=== PATIENT | male | born 1970 | race Caucasian/White ===

== ENCOUNTER 2016-11-07 04:30 | Emergency (ER) | payer BC, OTHER ==
[2016-11-07] MEDS ORDERED: KETOROLAC 60 MG/2 ML VIAL IM STA (04:59)
[2016-11-07] MEDS ORDERED: ACETAMINOPHEN TAB 500 MG TAB PO STA (04:59)
--- NOTE | 2016-11-07 05:02 | ED ---
General Adult HPI - General Chief complaint: Fever Stated complaint: Fever Time Seen by Provider: 11/07/16 04:47 Source: patient, RN notes reviewed, old records reviewed Mode of arrival: ambulatory Limitations: no limitations - History of Present Illness Initial comments: This is a 46-year-old male here for evaluation of fever. Patient coming in for fever cough and congestion, cities episodic fever since Monday with no improvement, getting worse difficult to control despite Motrin and Tylenol. Patient states he is taking appropriate doses of both medications. Also complains of cough and coughing up phlegm. No nausea vomiting or diarrhea, patient does complain of body aches - Related Data Home Medications Medication Instructions Recorded Confirmed No Known Home Medications [No 11/07/16 11/07/16 Known Home Medications] Allergies Allergy/AdvReac Type Severity Reaction Status Date / Time No Known Allergies Allergy Verified 11/07/16 04:45 Review of Systems ROS Statement: Those systems with pertinent positive or pertinent negative responses have been documented in the HPI. ROS Other: All systems not noted in ROS Statement are negative. Past Medical History Past Medical History: Sleep Apnea/CPAP/BIPAP Additional Past Medical History / Comment(s): TORTICOLLIS , VARICOSE VEINS, CYST RIGHT FACE, decreased urine flow History of Any Multi-Drug Resistant Organisms: None Reported Additional Past Surgical History / Comment(s): COLONOSCOPY Past Anesthesia/Blood Transfusion Reactions: No Reported Reaction Past Psychological History: No Psychological Hx Reported Smoking Status: Former smoker Past Alcohol Use History: Occasional Past Drug Use History: None Reported General Exam Limitations: no limitations General appearance: alert, in no apparent distress Head exam: Present: atraumatic, normocephalic, normal inspection Eye exam: Present: normal appearance, PERRL, EOMI. Absent: scleral icterus, conjunctival injection, periorbital swelling ENT exam: Present: normal exam, mucous membranes moist Neck exam: Present: normal inspection. Absent: tenderness, meningismus, lymphadenopathy Respiratory exam: Present: normal lung sounds bilaterally. Absent: respiratory distress, wheezes, rales, rhonchi, stridor Cardiovascular Exam: Present: regular rate, normal rhythm, normal heart sounds. Absent: systolic murmur, diastolic murmur, rubs, gallop, clicks GI/Abdominal exam: Present: soft, normal bowel sounds. Absent: distended, tenderness, guarding, rebound, rigid Extremities exam: Present: normal inspection, full ROM, normal capillary refill. Absent: tenderness, pedal edema, joint swelling, calf tenderness Back exam: Present: normal inspection Neurological exam: Present: alert, oriented X3, CN II-XII intact Psychiatric exam: Present: normal affect, normal mood Skin exam: Present: warm, dry, intact, normal color. Absent: rash Course Vital Signs 11/07/16 04:40 Temperature 102.9 F H Pulse Rate 109 H Respiratory 18 Rate Blood Pressure 124/67 O2 Sat by Pulse 95 Oximetry - Reevaluation(s) Reevaluation #1: 11/07/16 05:01 Patient's fevers improved in the ER encouraged to increase liquids Medical Decision Making - Medical Decision Making Return to the ER for evaluation. Patient presents today for evaluation of cough and fever and body ache, patient with flulike symptoms, - Radiology Data Radiology results: report reviewed (Chest x-ray is negative for acute disease), image reviewed Disposition Clinical Impression: Influenza, Fever Disposition: HOME SELF-CARE Condition: Good Instructions: Fever in Adults (ED), Influenza (ED) Referrals: Delano Calixto DO [Primary Care Provider] - 1-2 days
--- NOTE | 2016-11-07 05:35 | XR ---
EXAM: XR Chest, 2 Views. CLINICAL HISTORY: Reason: Pain TECHNIQUE: Frontal and lateral views of the chest. COMPARISON: No relevant prior studies available. FINDINGS: Lungs: The lungs are mildly hypoinflated. No evidence of airspace consolidation. Pleural spaces: Unremarkable. No pneumothorax. Heart: Unremarkable. No cardiomegaly. Mediastinum: Unremarkable. Bones: Unremarkable. No acute fracture. IMPRESSION: No evidence of active cardiopulmonary abnormality.
[2016-11-07 06:11] VITALS: BP 132/74; PULSE 98; RESP 16; TEMP 100.8
== END 2016-11-07 06:10 | disposition home or self-care (01) ==
LOC: EC 04:30
DX: J11.1 Influenza due to unidentified influenza virus with other respiratory manifestations (principal); Z87.891 Personal history of nicotine dependence
CPT/HCPCS: 87502; 71020; 99284; 96372; J1885

== ENCOUNTER → 2021-04-09 | Outpatient (CLI) | payer BC ==
--- NOTE | 2021-04-10 09:04 | XR ---
Left shoulder HISTORY: Pain for 2 months 3 views of the left shoulder Some mild acromioclavicular joint arthropathy changes present. No fracture or dislocation. Bone home office claims examiner alization, joint spaces and alignment are maintained. Left lung apex as visualized is normal. IMPRESSION: Acromioclavicular joint arthropathy. Shoulder MRI may be of benefit.
== END | disposition home or self-care (01) ==
LOC: RADXRMAIN 17:40
PROVIDERS: ATTEND Family Medicine
DX: M19.012 Primary osteoarthritis, left shoulder (principal)

== ENCOUNTER → 2022-04-25 | Outpatient (CLI) | payer BC ==
--- NOTE | 2022-04-25 14:42 | US ---
EXAMINATION TYPE: US venous doppler duplex LE DATE OF EXAM: 04/25/2022 2:32 PM COMPARISON: NONE CLINICAL HISTORY: I83.893 VARICOSE VEINS OF BOTH EXTREMITIES. SIDE PERFORMED: Bilateral TECHNIQUE: The lower extremity deep venous system is examined utilizing real time linear array sonog jamal with graded compression, doppler sonography and color-flow sonography. VESSELS IMAGED: Common Femoral Vein Deep Femoral Vein Greater Saphenous Vein * Femoral Vein Popliteal Vein Small Saphenous Vein * Proximal Calf Veins (* superficial vessels) Grayscale, color doppler, spectral doppler imaging performed of the deep veins of the lower extremiti es. There is normal flow, compressibility, vascular waveforms. Right Leg: Negative for DVT Left Leg: Negative for DVT IMPRESSION: No deep venous thrombosis of either lower extremity.
== END | disposition home or self-care (01) ==
LOC: RADUSWWP 08:11
PROVIDERS: ATTEND Family Medicine
DX: I83.893 Varicose veins of bilateral lower extremities with other complications (principal)
CPT/HCPCS: 93970

== ENCOUNTER → 2024-04-02 | Outpatient (CLI) | payer BC ==
--- NOTE | 2024-04-30 11:04 | CA ---
Transthoracic Echo Report Name: Leroy Jimenez Age: 53 Gender: M : 1970 Exam Date: 04/02/2024 14:12 Exam Location: [facility] Ht (in): 72 Wt (lb): 255 Ordering Physician: Attending/Referring Phys: Vibratory Pile Driver Nakia Green RDCS Procedure CPT: Indications: Cardiac Hx: Technical Quality: Fair Contrast 1: Total Dose (mL): Contrast 2: Total Dose (mL): MEASUREMENTS (Male / Female) Normal Values 2D ECHO LV Diastolic Diameter PLAX 4.3 cm 4.2 - 5.9 / 3.9 - 5.3 cm LV Systolic Diameter PLAX 2.5 cm IVS Diastolic Thickness 1.1 cm 0.6 - 1.0 / 0.6 - 0.9 cm LVPW Diastolic Thickness 1.3 cm 0.6 - 1.0 / 0.6 - 0.9 cm LV Relative Wall Thickness 0.5 RV Internal Dim ED PLAX 4.5 cm LA Volume 57.6 cm??? 18 - 58 / 22 - 52 cm??? LA Volume Index 23.4 cm???/m??? 16 - 28 cm???/m??? M-MODE Aortic Root Diameter MM 3.5 cm LA Systolic Diameter MM 4.5 cm LA Ao Ratio MM 1.3 AV Cusp Separation MM 2.1 cm DOPPLER AV Peak Velocity 147.0 cm/s AV Peak Gradient 8.6 mmHg AV Mean Velocity 112.0 cm/s AV Mean Gradient 5.4 mmHg AV Velocity Time Integral 32.0 cm LVOT Peak Velocity 129.5 cm/s LVOT Peak Gradient 6.7 mmHg LVOT Velocity Time Integral 24.8 cm MV Area PHT 4.1 cm??? Mitral E Point Velocity 72.9 cm/s Mitral A Point Velocity 65.2 cm/s Mitral E to A Ratio 1.1 MV Deceleration Time 182.9 ms MV E' Velocity 12.6 cm/s Mitral E to MV E' Ratio 5.8 TR Peak Velocity 232.9 cm/s TR Peak Gradient 21.7 mmHg Right Ventricular Systolic Press 26.3 mmHg FINDINGS Left Ventricle Mildly increased left ventricular wall thickness. Left ventricular cavity size normal. Normal left ventricular systolic function with no obvious regional wall motion abnormalities. Left ventricular ejection fraction is estimated at 55-60 %. Normal left ventricular diastolic filling pattern. Right Ventricle Mild right ventricular dilatation. Right ventricular systolic pressure within normal limits. Right Atrium Normal right atrial size. Left Atrium Normal left atrial size. Mitral Valve Structurally normal mitral valve. No mitral stenosis, regurgitation or prolapse. Aortic Valve Trileaflet aortic valve. No aortic valve stenosis or regurgitation. Tricuspid Valve Structurally normal tricuspid valve. Mild tricuspid regurgitation. Pulmonic Valve Structurally normal pulmonic valve. No pulmonic regurgitation. Pericardium No pericardial effusion. Aorta Normal size aortic root and proximal ascending aorta. CONCLUSIONS 1. Normal left ventricular size and systolic function 2. Mild tricuspid regurgitation 3. Mildly dilated right ventricle Previewed by: Dr. eJff Ramos MD (Electronically Signed) Final Date: 03 April 2024 07:25
== END | disposition home or self-care (01) ==
LOC: RADECHMAIN 13:45
PROVIDERS: ATTEND Family Medicine
DX: R06.09 Other forms of dyspnea (principal); I51.7 Cardiomegaly
CPT/HCPCS: 93306

== ENCOUNTER → 2024-05-09 | Outpatient (CLI) | payer BC ==
--- NOTE | 2024-05-13 07:05 | US ---
EXAMINATION TYPE: US carotid duplex BILAT DATE OF EXAM: 05/09/2024 COMPARISON: NONE CLINICAL INDICATION: Male, 53 years old with history of I 10 Essential hypertension; HTN TECHNIQUE: Carotid duplex ultrasound examination. Indirect Doppler criteria was utilized. FINDINGS: EXAM MEASUREMENTS: RIGHT: Peak Systolic Velocity (PSV) cm/sec ----- Right CCA: 103.6 ----- Right ICA: 134.5 ----- Right ECA: 118.1 ICA/CCA ratio: 1.3 RIGHT: End Diastole cm/sec ----- Right CCA: 22.9 ----- Right ICA: 25.3 ----- Right ECA: 17.9 LEFT: Peak Systolic Velocity (PSV) cm/sec ----- Left CCA: 114.1 ----- Left ICA: 131.8 ----- Left ECA: 131.8 ICA/CCA ratio: 1.2 LEFT: End Diastole cm/sec ----- Left CCA: 29.4 ----- Left ICA: 23.4 ----- Left ECA: 17.9 VERTEBRALS (direction of flow): Right Vertebral: Antegrade Left Vertebral: Antegrade Rhythm: Normal PHYSICIAN RELATIONS SPECIALIST NOTES: Significant plaquing is not identified. However, the internal carotid artery veloc ities are elevated, correlate with patient's symptoms. If additional evaluation would be of benefit, consider CTA or MRA of the neck vessels. IMPRESSION: Moderate elevated velocities in bilateral internal carotid arteries suggesting 50-69% narrowing. Sign ificant plaquing however is not identified. Correlate with the clinical symptoms. Criteria for Assigning % of Stenosis / Diameter reduction (Estimation based on the indirect measurements of the internal carotid artery velocities (ICA PSV). 1. Normal (no stenosis)=ICA PSV < 125 cm/s: ratio < 2.0: ICA EDV<40 cm/s. 2. Less than 50% stenosis=ICA PSV < 125 cm/s: ratio < 2.0: ICA EDV<40 cm/s. 3. 50 to 69% stenosis=ICA PSV of 125 to 230 cm/s: ration 2.0 ? 4.0: ICA EDV 40-100 cm/s. 4. Greater than 70% stenosis to near occlusion= ICA PSV > 230 cm/s: ratio > 4.0: ICA EDV > 100 cm/s. 5. Near occlusion= ICA PSV velocities may be low or undetectable: variable ratio and ICA EDV. 6. Total occlusion=unable to detect flow. [facility], , 05/13/2024 7:03 AM
== END | disposition home or self-care (01) ==
LOC: RADUSWWP 16:28
PROVIDERS: ATTEND Family Medicine
DX: I10 Essential (primary) hypertension (principal)
CPT/HCPCS: 93880

== ENCOUNTER → 2024-06-12 | Outpatient (CLI) | payer BC ==
[2024-06-12 12:00] VITALS: BP 141/84; PULSE 104; RESP 16; TEMP 98.3
--- NOTE | 2024-06-12 15:04 | P.SLEEP ---
History of Present Illness DATE: 06/12/2024 CONSULTATION/NEW PATIENT EVALUATION HISTORY OF PRESENT ILLNESS/SLEEP-WAKE EVALUATION: 53-year-old gentleman had been evaluated in the sleep center for obstructive sleep apnea hypopnea syndrome. Patient had been diagnosed with obstructive sleep apnea in 2007, since that time he is on treatment with CPAP every night. Patient lost 40 pounds since previous sleep study. I checked CPAP unit. CPAP pressure is 10 cm of water CPAP unit is very old. No information about apnea hypopnea index. SLEEP SCHEDULE: Usually sleep schedule from midnight until 8 AM. FALLING ASLEEP: No problems with falling asleep, no TV in bedroom. DURING SLEEP: Patient sleeps better after losing weight, but still has episodes of stop breathing during sleep without CPAP. No history of hypnogogical hallucinations, sleep paralysis, or cataplexy. DURING THE DAY/WAKE STATE: No significant sleepiness. [place] sleepiness scale is 5. Patient does not take naps. PAST MEDICAL HISTORY: Hypertension, acid reflux, tricuspid valve regurgitation. PAST SURGICAL HISTORY: Colonoscopy. MEDICATIONS: Lisinopril, hydrochlorothiazide. SOCIAL HISTORY: Please see below. FAMILY HISTORY: Hypertension, hyperlipidemia, COPD. REVIEW OF SYSTEMS: []. No fevers. No double vision. No recent chest pain. No shortness of breath. No abdominal pain. No bleeding episodes. No blood in urine. No seizure episodes. PHYSICAL EXAMINATION: GENERAL: A pleasant patient without any distress. VITAL SIGNS: Please see below, weight 263 pounds, BMI 37.2. HEENT: PERRLA, EOMI. Evaluation of oropharynx showed tongue protrudes midline, low position of soft palate Mallampati 4. NECK: Supple. No JVD. Thyroid is not palpable. 15 inches in circumference. LUNGS: Clear to percussion and to auscultation. Good air exchange. No wheezing or rhonchi. HEART: S1, S2 regular. No murmurs, gallops or rubs. ABDOMEN: Soft and nontender. Bowel sounds are present. No organomegaly appreciated. EXTREMITIES: No clubbing or cyanosis. FONDANT PUFF MAKER: Awake, alert, and oriented x3. Cranial nerves 2 to 7 intact. There is no fasciculation or atrophy noted. No focal deficits observed. ASSESSMENT: 1. History of sleep apnea since 2007. Patient continued to use CPAP equipment. CPAP unit is very old, no information about apnea hypopnea index. Patient lost 40 pounds since previous sleep study. Extremely low position of soft palate Mallampati 4, wide neck 17 inches in circumference. 2. Obesity, BMI 37.2. 3. Hypertension. 4. Acid reflux. 5. History of tricuspid valve regurgitation. PLAN: 1. Home sleep apnea test for evaluation of patient's breathing during sleep at the present time after losing weight. 2. Following plan after reading sleep study. 3. Preferable position during sleep on the side. 4. No driving if patient feels any sleepiness. Patient is aware of civil and criminal liability for unsafe driving. 5. Sleep hygiene with regular sleep time for at least 7.5-8 hours. 6. Watching and continue losing weight. Thank you very much for referring this patient for consultation. Sincerely, Kali Kay MD, PhD, FAASM. Diplomat of [place] [employer], Sleep Medicine Board by [place] [employer] [place] [employer] [facility] [place] cc: Delano Calixto DO Past Medical History Past Medical History: Coronary Artery Disease (CAD), GERD/Reflux, Hypertension, Sleep Apnea/CPAP/BIPAP Additional Past Medical History / Comment(s): TORTICOLLIS , VARICOSE VEINS, CYST RIGHT FACE, decreased urine flow History of Any Multi-Drug Resistant Organisms: None Reported Additional Past Surgical History / Comment(s): COLONOSCOPY Past Anesthesia/Blood Transfusion Reactions: No Reported Reaction Past Psychological History: No Psychological Hx Reported Smoking Status: Never smoker Past Alcohol Use History: Occasional Past Drug Use History: None Reported - Past Family History Father Family Medical History: Hyperlipidemia, Hypertension Additional Family Medical History / Comment(s): snoring Mother Family Medical History: COPD Medications and Allergies Home Medications Medication Instructions Recorded Confirmed Type hydroCHLOROthiazide 25 mg PO DAILY 06/12/24 06/12/24 History lisinopriL 30 mg PO DAILY 06/12/24 06/12/24 History Allergies Allergy/AdvReac Type Severity Reaction Status Date / Time No Known Allergies Allergy Verified 11/07/16 04:45 Physical Exam Vitals: Vital Signs Temp Pulse Resp BP Pulse Ox 06/12/24 11:58 98.3 F 104 H 16 141/84 96 Intake and Output 06/11/24 06/12/24 06/12/24 22:59 06:59 14:59 Other: Weight 119.295 kg Sleep Note - Sleep Data ESS Total: 5 - Sleep Note Sleep Note: Temperature: 98.3 F Pulse Rate: 104 Respiratory Rate: 16 Blood Pressure: 141/84 SpO2: 96 Height: 5 ft 10.5 in Weight: 119.295 kg BMI: Neck Circumference: 17
== END ==
LOC: 3 N SLEEP 11:22
PROVIDERS: ATTEND Internal Medicine
CPT/HCPCS: 99211

== ENCOUNTER → 2024-06-20 | Outpatient (CLI) | payer BC ==
--- NOTE | 2024-06-27 14:05 | P.PCN ---
Description of Procedure: CLINICAL: A home sleep apnea test has been done for confirmation of possible obstructive sleep apnea-hypopnea syndrome. DESCRIPTION OF PROCEDURE: RESULTS: Recording time was 7 hours 44 minutes. Evaluation time was 7 hours 31 minutes. Evaluation time is sufficient for making conclusion about results of the test. Raw data of sleep recording has been reviewed and is adequate. Respiratory channel showed 164 apneas and 297 hypopneas. Apnea-hypopnea index was 61.3 per hour. Pulse rate in the range between minimum 53, maximum 95, average 67 by computer calculation. Lowest desaturation was 82%. IMPRESSION: 1. Severe Obstructive Sleep Apnea Hypopnea Syndrome. Please see other impressions from consultation. PLAN: 1. The patient should have PAP titration for correction of respiratory abnormallities during sleep. 2. Sleep hygiene with regular time in bed for at least 8 hours. 3. Watching weight. 4. No driving if feeling any sleepiness. 5. Following plan after reading PAP titration. Thank you very much for allowing me to participate in the management of your patient. Sincerely, Kali Kay MD, PhD, FAASM Diplomat of [employer] [employer] Sleep Medicine Board of [place] [employer] [facility] [place] cc: Delano Calixto DO
== END ==
LOC: 3 N SLEEP 16:54
PROVIDERS: ATTEND Internal Medicine
DX: G47.33 Obstructive sleep apnea (adult) (pediatric) (principal); Z87.891 Personal history of nicotine dependence

== ENCOUNTER 2024-07-25 19:42 | Outpatient (CLI) | payer BC ==
--- NOTE | 2024-07-29 11:05 | P.PCN ---
Description of Procedure: CLINICAL: Titration with positive air pressure has been done for correction of respiratory abnormalities during sleep. DESCRIPTION OF PROCEDURE: The standard montage for clinical polysomnography included the electroencephalogram, the electrocardiogram, the mentalis surface electromyography and Lead II cardiography. The respiratory battery consisted of measurements of nasal /buccal air flow, pressure transducer measurements from the nose, thoracic and /or abdominal effort and intercostal surface electromyography. Video monitoring has been done to check for any parasomnia events. Nocturnal oxyhemoglobin saturations were obtained by finger oximetry. Step-calderon titration with positive airway pressure was utilized to control respiratory events. Raw data of sleep recording has been reviewed and is adequate. RESULTS: Sleep efficiency was normal 92.3%. Latency to sleep onset was normal 17.0 minutes.]. Sleep architecture showed stage N1 was normal 8.8%, Delta sleep was absent 0%, REM sleep was normal 22.9%. Heart rate was minimum 56 BPM, maximum 63 BPM, average 59 BPM. EMG showed 74.4 periodic limb movements per hour with 0 micriarousals per hour. PAP titration have been done with CPAP up to the pressure 13 cm H2O. The best results were at the pressure 13 cm H2O. Apnea hypopnea index reduced to 0.8. Patient was at that pressure in her REM sleep and non-REM sleep for 144.8 minutes. IMPRESSION: 1. Obstructive sleep apnea hypopnea syndrome on controle with PAP treatment. 2. Significant periodic limb movements have been documented. Please see other impressions from consultation. PLAN: 1. The patient will have treatment with positive air pressure equipment with the level of pressure AutoPAP 5-13 cm H2O and should use it every night for the whole night. 2. Watching and losing weight. 3. Sleep hygiene with regular time in bed for at least 8 hours. 4. No driving if feeling any sleepiness. 5. I will see the patient for follow up visit to explain the results of the test, recommendations, check compliance with treatment and make any necessary adjustment related to mask fitting, pressure and humidification. 6. Please check iron profile including ferritin level. Low level of iron may increase risk for periodic limb movements Thank you very much for allowing me to participate in the management of your patient. Sincerely, Kali Kay MD, PhD, FAASM Diplomat of [place] [employer] Sleep Medicine Board of [place] [employer]enger [employer] [facility] [place] cc: Elizabeth Calixto DO
== END 2024-07-26 05:25 | disposition home or self-care (01) ==
LOC: 3 N SLEEP 19:42
PROVIDERS: ATTEND Internal Medicine
DX: G47.33 Obstructive sleep apnea (adult) (pediatric) (principal); G47.61 Periodic limb movement disorder; Z87.891 Personal history of nicotine dependence
CPT/HCPCS: 95811

== ENCOUNTER → 2024-11-21 | Outpatient (CLI) | payer BC ==
[2024-11-21 15:13] LABS: Basophils # (A) 0.03 X 10*3/uL (0.00-0.10); Basophils % (A) 0.7 %; Eosinophils # (A) 0.07 X 10*3/uL (0.04-0.35); Eosinophils % (A) 1.6 %; HCT 43.4 % (39.6-50.0); HGB 14.4 g/dL (13.0-17.0); Lymphocytes # (A) 1.54 X 10*3/uL (0.90-5.00); Lymphocytes % (A) 34.2 %; MCH 30.6 pg (27.0-32.0); MCHC 33.2 g/dL (32.0-37.0); MCV 92.1 FL (80.0-97.0); Mean Platelet Volume 9.4 FL (9.5-12.2); Monocytes # (A) 0.42 X 10*3/uL (0.20-1.00); Monocytes % (A) 9.3 %; NRBC Per 100 WBC 0 X 10*3/uL (0.00-0.01); Neutrophils # (A) 2.42 X 10*3/uL (1.80-7.70); Neutrophils % (A) 53.8 %; Platelet Count 208 X 10*3/uL (140-440); RBC 4.71 X 10*6/uL (4.40-5.60); RDW 12.4 % (11.5-14.5)
[2024-11-21 15:37] LABS: Chol/HDL Ratio 3.04 Ratio; LDL Cholesterol,Calculated 66.3 mg/dL (0.0-131.0)
[2024-11-21 15:43] LABS: NT-Pro-B-Type Natriuretic Pept <36 pg/mL (0-125)
== END | disposition home or self-care (01) ==
LOC: LABWHC1 09:16
PROVIDERS: ATTEND Student in an Organized Health Care Education/Training Program
DX: E11.9 Type 2 diabetes mellitus without complications (principal); I50.9 Heart failure, unspecified; E78.5 Hyperlipidemia, unspecified; I11.0 Hypertensive heart disease with heart failure
CPT/HCPCS: 36415; 80061; 83036; 83880; 85025